=== PATIENT | male | born 1975 | race Caucasian/White ===

== ENCOUNTER 2019-04-28 21:39 | Emergency (ER) | payer OTHER ==
[~2019-04-28] VITALS: Ht 182.9 cm; Wt 102.1 kg
[~2019-04-28 21:39] MED LIST: CELEXA20 MG PO; IBUPROFEN 800800 MG PO; NORCO 5-325 TA1 EACH PO
[2019-04-28] MEDS ORDERED: IBUPROFEN 800800 M1 PO (23:14)
[2019-04-28] MEDS ORDERED: TRAMADOL 50 MG50 MG PO (23:14)
[2019-04-28 23:30] VITALS: BP 133/77
== END 2019-04-28 23:32 | disposition home or self-care (01) ==
LOC: M.ERS 21:39
DX: S93.692A Other sprain of left foot, initial encounter (principal); F41.9 Anxiety disorder, unspecified; X50.1XXA Overexertion from prolonged static or awkward postures, initial encounter; Y92.89 Other specified places as the place of occurrence of the external cause; Y93.01 Activity, walking, marching and hiking; Y99.8 Other external cause status

== ENCOUNTER 2020-11-18 08:33 | Observation (INO) | payer OTHER ==
[~2020-11-18] VITALS: Ht 182.9 cm; Wt 103.7 kg
[~2020-11-18 08:33] MED LIST changes: +IBUPROFEN 800800 M1 PO; +TRAMADOL 50 MG50 MG PO
[2020-11-18 08:38] VITALS: BP 132/78
[2020-11-18 08:58] LABS: ABSOLUTE LYMPHOCYTES 2.2 thou/uL (0.8-5.3); ABSOLUTE MONOCYTES 0.5 thou/uL (0.0-1.2); BASOPHILS 0.4 %; EOSINOPHILS 0.6 %; HEMATOCRIT 43.2 % (42.0-52.0); LYMPHOCYTES 28.1 %; MCH 28.7 pg (26.0-34.0); MCHC 34.7 g/dL (28.0-37.0); MCV 82.8 fL (80.0-100.0); MONOCYTES 6.4 %; MPV 7.2 fl. (7.2-11.1); NUCLEATED RBCS 0 /100WBC; PLATELET COUNT* 284 thou/uL (150-400); POLYS 64.5 %; RBC 5.21 mil/uL (4.50-6.00); RDW-CV 13.2 % (10.5-14.5); WBC 7.8 thou/uL (4.0-11.0)
[2020-11-18 09:06] LABS: CALCIUM 9.1 mg/dL (8.5-10.1); CREATININE 0.9 mg/dL (0.6-1.3); POTASSIUM 4.3 mmol/L (3.5-5.1)
[2020-11-18 09:10] LABS: ALBUMIN 4.2 g/dL (3.4-5.0); DIRECT BILIRUBIN 0.2 mg/dL (<0.1-0.3); TOTAL BILIRUBIN 0.6 mg/dL (<0.1-1.0)
[2020-11-18 11:53] LABS: URINE BILIRUBIN NEGATIVE (Negative); URINE BLOOD NEGATIVE (Negative); URINE CLARITY CLEAR; URINE COLOR YELLOW; URINE GLUCOSE-RANDOM NEGATIVE (Negative); URINE KETONES NEGATIVE (Negative); URINE LEUKOCYTES NEGATIVE (Negative); URINE NITRITE NEGATIVE (Negative); URINE PROTEIN NEGATIVE (Negative); URINE SPECIFIC GRAVITY 1.015 (1.005-1.030); URINE UROBILINOGEN 0.2 E.U./dl (0.2-1.0)
[2020-11-18 12:40] VITALS: BP 118/68
--- NOTE | 2020-11-18 16:59 | EKG ---
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
--- NOTE | 2020-11-18 17:21 | 2DMMODE ---
[place] [address] 2 D/M-MODE ECHOCARDIOGRAM Name: TODD BOLES JR Room: [address] Sung#: [id number] Admission: 11/18/20 Attend Phys: Omar Jaimes, Discharge: Date of : 75 Date of Service: 11/18/20 1721 Report #: [id number] THIS REPORT FOR: cc: Antonio Lala MD, Anthony MD Blick,Alex Baxter MD [facility] ~ APPROVED REPORT Study performed: 11/18/2020 15:05:34 EXAM: Comprehensive 2D, Doppler, and color-flow Echocardiogram Patient Location: In-Patient Room #: [facility] Status: routine BSA: 2.21 HR: 56 bpm BP: 118/68 mmHg Rhythm: NSR Other Information Study Quality: Good Indications CVA/TIA Echo Enhancing Agent Indication: Rule out Shunt Agent(s) / Amount(s) Used: Agitated Saline 10 cc 2D Dimensions IVSd: 9.82 (7-11mm) LVOT Diam: 21.93 (18-24mm) LVDd: 48.15 mm PWd: 9.19 (7-11mm) Ascending Ao: 36.25 (22-36mm) LVDs: 27.38 (25-40mm) Aortic Root: 39.07 mm Volumes Left Atrial Volume (Systole) LA ESV Index: 29.90 mL/m2 Aortic Valve AoV Peak Roman.: 1.16 m/s AO Peak Gr.: 5.34 mmHg LVOT Max P.28 mmHg AO Mean Gr.: 2.94 mmHg LVOT Mean [place]25 [place] [address] 2 D/M-MODE ECHOCARDIOGRAM Name: TODD BOLES JR Room: [address] M.R.#: [id number] Admission: 11/18/20 Attend Phys: Omar Jaimes, Discharge: Date of : 75 Date of Service: 11/18/20 1721 Report #: [id number] LVOT Max V: 1.15 m/s AO V2 VTI: 22.41 cm LVOT Mean V: 0.67 m/s KAYCEE (VTI): 4.13 cm2 LVOT V1 VTI: 24.51 cm Mitral Valve E/A Ratio: 1.24 MV Decel. Time: 207.19 ms MV E Max Roman.: 0.69 m/s MV PHT: 60.09 ms MVA (PHT): 3.66 cm2 TDI E/Lateral E': 4.31 E/Medial E': 5.75 Medial E' Roman.: 0.12 m/s Lateral E' Roman.: 0.16 m/s Pulmonary Valve PV Peak Roman.: 0.90 m/s PV Peak Gr.: 3.23 mmHg Tricuspid Valve RAP Estimate: 5.00 mmHg TR Peak Gr.: 16.73 mmHg RVSP: 21.00 mmHg PA Pressure: 21.00 mmHg Left Ventricle The left ventricle is normal size. There is normal LV segmental wall motion. There is normal left ventricular wall thickness. Left ventricular systolic function is normal. The left ventricular ejection fraction is within the normal range. LVEF is 60-65%. The left ventricular diastolic function is normal. Right Ventricle The right ventricle is normal size. The right ventricular systolic function is normal. Atria Left atrium is mildly dilated. The interatrial septum is intact with no evidence for an atrial septal defect. The right atrium size is normal. Aortic Valve The aortic valve is normal in structure. No aortic regurgitation is present. There is no aortic valvular stenosis. Mitral Valve The mitral valve is normal in structure. [place] [address] 2 D/M-MODE ECHOCARDIOGRAM Name: TODD BOLES JR Room: [address] M.R.#: [id number] Admission: 11/18/20 Attend Phys: Omar Jaimes, Discharge: Date of : 75 Date of Service: 11/18/20 1721 Report #: [id number] regurgitation noted. No evidence of mitral valve stenosis. Tricuspid Valve The tricuspid valve is normal in structure. Trace tricuspid regurgitation. No pulmonary hypertension. Pulmonic Valve The pulmonary valve is normal in structure. There is no pulmonic valvular regurgitation. Great Vessels Aortic root is mildly dilated. IVC is normal in size and collapses >50% with inspiration. Pericardium There is no pericardial effusion. <Conclusion> LVEF is 60-65%. Left atrium is mildly dilated. The interatrial septum is intact with no evidence for an atrial septal defect. <ELECTRONICALLY SIGNED> By: Alex Interiano MD, FACC 11/18/201720 20 20 Alex Interiano MD, FACC /INF
[2020-11-18 20:00] VITALS: BP 109/71
[2020-11-19] VITALS: BP 103/57
[2020-11-19 04:00] VITALS: BP 105/67
[2020-11-19 04:57] LABS: ALBUMIN 3.3 g/dL (3.4-5.0); ALKALINE PHOSPHATASE 54 U/L (46-116); ANION GAP 7 mmol/L (7-16); BUN 15 mg/dL (7-18); CALCIUM 8.6 mg/dL (8.5-10.1); CHLORIDE 104 mmol/L (98-107); CHOLESTEROL 145 mg/dL (<200); CO2 28 mmol/L (21-32); GLUCOSE 80 mg/dL (70-99); HDL CHOLESTEROL 34 mg/dL (>40); LDL CHOLESTEROL 85 mg/dL (<100); POTASSIUM 4.1 mmol/L (3.5-5.1); SGOT 12 U/L (15-37); SGPT 33 U/L (30-65); SODIUM 139 mmol/L (136-145); TC:HDL 4.3 Ratio (Not establshd); TOTAL BILIRUBIN 0.5 mg/dL (<0.1-1.0); TOTAL PROTEIN 6.3 g/dL (6.4-8.2); TRIGLYCERIDE 130 mg/dL (<150); VLDL 26 mg/dL (<40)
[2020-11-19 05:21] LABS: SERUM ASSESSMENT CLEAR
[2020-11-19 08:10] VITALS: BP 114/63
--- NOTE | 2020-11-19 10:33 | CON ---
[address] [address] CONSULTATION Name: RAMANATODD Romo Room: [address] M.R.#: [id number] Admission: 11/18/20 Attend Phys: Omar Jaimes MD Discharge: Date of : 75 Report #: [id number] THIS REPORT FOR: cc: Antonio Lala MD, Anthony MD ~ Sharon Erickson DO DATE OF SERVICE: 11/18/2020 NEUROLOGY CONSULTATION HISTORY OF PRESENT ILLNESS: The patient is a 45-year-old male who in the past 10 years has had approximately 5 or 6 episodes which began with tingling of the right tongue, followed by a headache. This may last 10-15 minutes and then he may experience right-sided weakness. The patient has not had an episode for at least 3 years. He has never been to a physician or to an Emergency Room for these episodes. However, he did tell me that he has had an MRI in the past because he does have a history of headache and a venous anomaly was found. He was told not to worry about this. The patient states that he would not have come to the Emergency Room, but usually these episodes come and go fairly quickly. This episode began Saturday evening, he thought it would go away by . He typically begins work at 6:00 a.m., so as he was driving to work he could see halos around the car lights when he came home, he still had the symptoms along with the headache and when he woke up this morning and was still not feeling well, he thought he should come to the Emergency Room. The patient has not seen a physician for a few years because of insurance reasons. He typically sees Dr. Antonio Lala and has an appointment to see Dr. Lala sometime in the next month. The patient states that at this moment, he has a headache, it is a 3 on a scale from 1-10, it is not throbbing, but more of an annoying dull aching sensation. He feels he has some right-sided weakness. He has some blurry vision from the left eye. When the patient came to the Emergency Room, he was evaluated by the Emergency Room physician and some diagnostic studies were done. The patient had a CT scan of the head, which was negative. He had a CT scan of the chest, which was negative. The patient states that in the history of his the 10 years, these episodes have been going, he has had 5 or 6 of these total, but never had an [place] [address] CONSULTATION Name: GERARDOURIELTODD JR Room: [address] M.R.#: [id number] Admission: 11/18/20 Attend Phys: Omar Jaimes MD Discharge: Date of : 75 Report #: [id number] PAST MEDICAL HISTORY: Headache, anxiety. PAST SURGICAL HISTORY: Eye surgeries, left Achilles tendon repair, biceps tendon repair. MEDICATIONS: None. ALLERGIES: None. SOCIAL HISTORY: The patient is . He drinks 30 beers on weekends and 6-8 drinks daily. PHYSICAL EXAMINATION: VITAL SIGNS: Temperature 36.3, pulse rate 64, respiratory rate 14, blood pressure 118/68, bedside pulse oximetry 99% on room air. NEUROLOGIC: Cranial nerves 2-12 are grossly intact. Motor exam demonstrates symmetrical strength in all 4 extremities with tone and bulk normal. Reflexes were trace throughout. Plantar responses are extensor bilaterally. Coordination demonstrates no dysmetria. LABORATORY DATA: Hematology: White blood cell count 7.8, hemoglobin 15, hematocrit 43.2, MCV 82.8, platelet count 282,000. Urinalysis negative. Chemistry: Sodium 141, potassium 4.3, chloride 104, carbon dioxide 30, BUN 18, creatinine 0.9, GFR 91, glucose 97. Liver functions normal. TSH 0.784, COVID negative. IMPRESSION: The patient's episodes are most consistent with a complicated migraine. He apparently has a history of venous anomaly or venous malformation. I do recommend an MRI of the head as an outpatient. The patient is scheduled for carotid ultrasound and echocardiogram. He does have some anxiety and I have ordered lorazepam 0.5 mg q. 6 hours. The patient is now on aspirin 325 mg daily. He does not have a medication for pain. Because he has complicated migraines, he is not a candidate for a triptan. He may do well with Toradol or perhaps even hydrocodone, although I do not frequently prescribe narcotics for headache. I thank you for your kind referral of the patient and we will continue to follow him with you. <ELECTRONICALLY SIGNED> By: Sharon Erickson DO 11/19/20 1033 1401 1424Rcal Erickson DO /nt
[2020-11-19 12:00] VITALS: BP 119/70
[2020-11-19 15:01] LABS: AMP/METHAMP Negative (Negative); BARBITURATES Negative (Negative); BENZODIAZEPINES Negative (Negative); COCAINE Negative (Negative); METHADONE Negative (Negative); OPIATES Negative (Negative); PCP Negative (Negative); THC Negative (Negative)
[2020-11-19 16:56] VITALS: BP 119/70
[2020-11-20 05:36] LABS: GLYCOHEMOGLOBIN (HGB A1C) 5.6 % (4.8-5.6)
== END 2020-11-19 17:35 | disposition home or self-care (01) ==
LOC: M.ERS 08:33 → M.2W 10:37 → M.TBA-ER 10:37 → M.2W 12:52
PROVIDERS: Emergency Medicine; Internal Medicine; ADMIT Internal Medicine; ATTEND Internal Medicine
DX: R53.1 Weakness (principal); G43.909 Migraine, unspecified, not intractable, without status migrainosus; F41.1 Generalized anxiety disorder; I16.1 Hypertensive emergency; E66.9 Obesity, unspecified; Z68.31 Body mass index [BMI] 31.0-31.9, adult; Z79.899 Other long term (current) drug therapy; Z86.73 Personal history of transient ischemic attack (TIA), and cerebral infarction without residual deficits; Z20.828 Contact with and (suspected) exposure to other viral communicable diseases